=== PATIENT | male | born 1975 | race Caucasian/White ===

== ENCOUNTER 2020-05-23 00:30 | Observation (INO) ==
[2020-05-23] MEDS ORDERED: ONDANSETRON 4 MG/2 ML VIAL IV STA (01:06)
[2020-05-23] MEDS ORDERED: KETOROLAC 30 MG/1 ML VIAL IV STA (01:06)
[2020-05-23] MEDS ORDERED: MORPHINE 4 MG/1 ML VIAL IV STA (01:06)
[2020-05-23 01:12] LABS: Basophils # 0.1 10*3/uL (0.0-0.2); Basophils % 0.7 % (0.0-0.8); Eosinophils # 0.2 10*3/uL (0.0-0.87); Hematocrit 48.2 VOL% (42.0-52.0); Hemoglobin 16.3 GM/DL (14.0-18.0); Immature Granulocytes % 0.6 %; Immature Granulocytes Absolute 0.05 #; Lymphocytes # 1.7 10*3/uL (1.4-4.0); Lymphocytes % 18.7 % (21.2-54.2); Mean Corpuscular HGB Conc 33.8 GM/DL (32-36); Mean Corpuscular Volume 90.1 FL (87-102); Mean Platelet Volume 9.8 FL (9.6-12.0); Monocytes % 8.1 % (1.7-12.7); Neutrophils % 69.9 % (38.7-73.9); Platelet Count 240 T/CUMM (130-400); Red Blood Count 5.35 MC/CUMM (3.8-5.5); Red Cell Distribution Width 13.5 % (9.3-17.3); White Blood Count 9.1 T/CUMM (4-12)
[2020-05-23 01:24] LABS: Calcium 8.6 MG/DL (8.5-10.1)
[2020-05-23 01:25] LABS: Bilirubin,Total 0.43 MG/DL (0.2-1.0); Total Protein 7.9 G/DL (6.4-8.3)
[2020-05-23 01:26] LABS: Albumin 3.9 G/DL (3.4-5.0); Osmolality,Calculated 279.7 MOS/KG (273-304)
[2020-05-23] MEDS ORDERED: ONDANSETRON 4 MG/2 ML VIAL IV PRN (01:41)
[2020-05-23] MEDS ORDERED: NICOTINE 21 MG/24 HR PATCH TRANSDERM PRN (01:41)
[2020-05-23] MEDS ORDERED: DEXTROSE 50% 25 GM/50 ML VIAL IV PRN (01:41)
[2020-05-23] MEDS ORDERED: ALUMINUM/MAGNES/SIMETH MAX STR 30 ML UDCUP PO PRN (01:41)
[2020-05-23] MEDS ORDERED: diphenhydrAMINE CAP 25 MG CAPSULE PO PRN (01:41)
[2020-05-23] MEDS ORDERED: guaiFENesin/DM ER 600-30 MG TABLET PO PRN (01:41)
[2020-05-23] MEDS ORDERED: GLUCAGON 1 MG VIAL IM PRN (01:41)
[2020-05-23] MEDS ORDERED: SODIUM CHLORIDE 0.9% 1,000 ML IV STA (01:43)
[2020-05-23] MEDS: SODIUM CHLORIDE 0.9% 1,000 ML IV SCH ×2 (02:56→12:41)
[2020-05-23 03:08] LABS: Bacteria,Urine Occasional /HPF (Few); Bilirubin,Urine Negative (Negative); Blood, Urine Small mg/dL (Negative); Glucose,Urine (UA) Negative (Negative); Ketones,Urine 5 mg/dL (Negative); Mucus,Urine Moderate /LPF (Occasional); Nitrite,Urine Negative (Negative); Protein,Urine Negative; RBC,Urine 3 /HPF (0-4); Squamous Epithelial Cell,Urine Occasional /HPF (0-10); Urine Appearance CLEAR (Clear); Urine Color Yellow (Yellow); Urine Specific Gravity 1.027 (1.001-1.035); WBC,Urine 4 /HPF (0-6)
[2020-05-23] MEDS: MORPHINE 4 MG/1 ML VIAL IV PRN ×4 (03:41→20:33)
[2020-05-23] MEDS: hydrALAZINE 20 MG/1 ML VIAL IV PRN ×2 (05:22→13:36)
[2020-05-23] MEDS ORDERED: HYDROmorphone 2 MG/1 ML VIAL IV ONE (06:07)
[2020-05-23] MEDS: lisinopriL 20 MG TABLET PO SCH (16:12)
[2020-05-23] MEDS: amLODIPine 5 MG TABLET PO SCH (20:33)
[2020-05-24] MEDS: SODIUM CHLORIDE 0.9% 1,000 ML IV SCH ×4 (03:19→20:30)
[2020-05-24 09:37] LABS: Basophils # 0.1 10*3/uL (0.0-0.2); Basophils % 0.3 % (0.0-0.8); Eosinophils % 0.1 % (0.00-10.9); Hematocrit 48.4 VOL% (42.0-52.0); Hemoglobin 16.7 GM/DL (14.0-18.0); Immature Granulocytes % 0.6 %; Lymphocytes # 0.8 10*3/uL (1.4-4.0); Lymphocytes % 4.5 % (21.2-54.2); Mean Corpuscular HGB Conc 34.5 GM/DL (32-36); Mean Corpuscular Volume 89.8 FL (87-102); Mean Platelet Volume 10.1 FL (9.6-12.0); Monocytes % 8.7 % (1.7-12.7); Neutrophils % 85.8 % (38.7-73.9); Platelet Count 213 T/CUMM (130-400); Red Blood Count 5.39 MC/CUMM (3.8-5.5); Red Cell Distribution Width 13.7 % (9.3-17.3); White Blood Count 17.4 T/CUMM (4-12)
[2020-05-24 10:04] LABS: Band Neutrophils 1 % (0-10); Lymphocytes 7 % (20-55); Segmented Neutrophils 89 % (50-85); Total Cells Counted 100
[2020-05-24 10:05] LABS: Hypochromasia 1+; Platelet Estimate Adequate
[2020-05-24 10:08] LABS: Calcium 8.8 MG/DL (8.5-10.1); Osmolality,Calculated 266.2 MOS/KG (273-304)
[2020-05-24] MEDS: lisinopriL 20 MG TABLET PO SCH (12:02)
[2020-05-24] MEDS: amLODIPine 5 MG TABLET PO SCH (21:41)
[2020-05-25] MEDS: SODIUM CHLORIDE 0.9% 1,000 ML IV SCH (05:08)
[2020-05-25 07:32] VITALS: BP 152/67
[2020-05-25 09:01] LABS: Basophils # 0.1 10*3/uL (0.0-0.2); Basophils % 0.4 % (0.0-0.8); Eosinophils % 0.1 % (0.00-10.9); Hematocrit 50.1 VOL% (42.0-52.0); Hemoglobin 17.1 GM/DL (14.0-18.0); Immature Granulocytes % 0.6 %; Lymphocytes # 1.1 10*3/uL (1.4-4.0); Lymphocytes % 6.6 % (21.2-54.2); Mean Corpuscular HGB Conc 34.1 GM/DL (32-36); Mean Corpuscular Volume 90.3 FL (87-102); Mean Platelet Volume 9.7 FL (9.6-12.0); Neutrophils % 83.3 % (38.7-73.9); Platelet Count 220 T/CUMM (130-400); Red Blood Count 5.55 MC/CUMM (3.8-5.5); Red Cell Distribution Width 13.6 % (9.3-17.3); White Blood Count 15.9 T/CUMM (4-12)
[2020-05-25] MEDS: lisinopriL 20 MG TABLET PO SCH (09:10)
[2020-05-25 09:30] LABS: Albumin 3.2 G/DL (3.4-5.0); Bilirubin,Total 2.2 MG/DL (0.2-1.0); Osmolality,Calculated 265.4 MOS/KG (273-304); Total Protein 8.5 G/DL (6.4-8.3)
== END 2020-05-25 11:28 | disposition home or self-care (01) ==
LOC: N.ED 00:30 → N.EDINP 00:30 → SUATTDRO 01:41 → N.5E 02:35
PROVIDERS: ADMIT Internal Medicine Geriatric Medicine; ATTEND Family Medicine